=== PATIENT | female | born 1955 | race Hispanic/Latino ===

== ENCOUNTER → 2019-10-08 | Outpatient (CLI) | payer OTHER | END | disposition home or self-care (01) | LOC: OIH 09:44 | PROVIDERS: ATTEND Internal Medicine | DX: Q25.49 Other congenital malformations of aorta (principal); R05 Cough | CPT/HCPCS: 71046 ==

== ENCOUNTER → 2020-03-17 | Outpatient (CLI) | payer MEDICARE | END | disposition home or self-care (01) | LOC: OIH 13:37 | PROVIDERS: ATTEND Internal Medicine | DX: M47.27 Other spondylosis with radiculopathy, lumbosacral region (principal); M85.80 Other specified disorders of bone density and structure, unspecified site | CPT/HCPCS: 72100 ==